=== PATIENT | male | born 1990 | race Asian ===

== ENCOUNTER 2024-09-20 11:28 | Emergency (ER) | payer BC ==
[2024-09-20 11:52] VITALS: PULSE 72; RESP 19; TEMP 98.4; BMI 31.7
[2024-09-20] MEDS ORDERED: ACETAMINOPHEN INJECTION 100 ML ONE (12:45)
[2024-09-20 12:55] LABS: ABSOLUTE IMMATURE GRANULOCYTES 0.05 x10^3/uL (0.0-0.031); BASOPHILS # 0.04 x10^3/uL (0.01-0.08); EOSINOPHIL % 1.9 % (0.8-7.0); EOSINOPHILS # 0.22 x10^3/uL (0.04-0.54); HEMATOCRIT 46.1 % (40.1-51.0); HEMOGLOBIN 14.9 g/dL (13.7-17.5); MCHC 32.3 g/dl (32.3-36.5); MEAN CELL VOLUME 85.1 fl (79.0-92.2); MEAN PLT VOLUME 9.5 fl (9.4-12.4); MONOCYTE # 0.75 x10^3/uL (0.30-0.82); MONOCYTE % 6.5 % (5.3-12.2); PLATELET COUNT 417 x10^3/uL (163-337); RDW 13.4 % (12.0-15.6)
[2024-09-20] MEDS: SODIUM CHLORIDE 1,000 ML IV STA (13:01)
[2024-09-20] MEDS: ACETAMINOPHEN 1000 MG/100 ML BAG IVPB ONE (13:01)
[2024-09-20 13:58] LABS: ALBUMIN 3.8 g/dl (3.4-5.0); BLOOD UREA NITROGEN 9.5 mg/dL (7-18); CALCIUM 9.9 mg/dL (8.5-10.1); POTASSIUM 4.2 mmol/L (3.5-5.1)
[2024-09-20 14:00] LABS: CREATININE 0.9 mg/dL (0.55-1.3)
[2024-09-20 14:10] LABS: BILIRUBIN,TOTAL 0.5 mg/dL (0.2-1); TOT PROT 7.8 g/dl (6.4-8.2)
[2024-09-20 14:18] VITALS: BP 123/87
[2024-09-20 16:24] LABS: HCV DIAGNOSTIC IN-HOUSE W/RFLX NON-REACTIVE (NONREACTIVE); HIV INTERPRETATION NEGATIVE (NEGATIVE)
== END 2024-09-20 14:25 | disposition home or self-care (01) ==
LOC: JER 11:28
PROC: 3E033NZ Introduction of Analgesics, Hypnotics, Sedatives into Peripheral Vein, Percutaneous Approach (ICD-10-PCS; principal; 2024-09-20)
PROC: 3E0337Z Introduction of Electrolytic and Water Balance Substance into Peripheral Vein, Percutaneous Approach (ICD-10-PCS; 2024-09-20)
DX: R42 Dizziness and giddiness (principal); K59.00 Constipation, unspecified; R20.0 Anesthesia of skin
CPT/HCPCS: 36415; 80053; 84484; 85025; 86803; 87389; 93005; 93010; 99284-25; J0131